=== PATIENT | male | born 1955 | race Caucasian/White ===

== ENCOUNTER 2018-06-08 09:33 | Inpatient (IN) | payer OTHER ==
--- NOTE | 2018-06-08 10:34 | PDOC ---
Attending Attestation - Resident Resident Name: Graham Logan - ED Attending Attestation I have performed the following: I have examined & evaluated the patient, The case was reviewed & discussed with the resident, I agree w/resident's findings & plan, Exceptions are as noted - HPI HPI: 06/08/18 10:49 63y M hx of AVM sp coil, bph, sent from urology for evaluation of possible UTI. Pt notes that he has been having fever/chills, dysuria/hematuria for several days, had a cystocscopy for workup of hematuria on , went to urology for fevers yetserday and was started with abx (?levaquin), was told that if still febrile will need to be admitted. he noted fever/chills last night so pt was referred to the ED for evalution. pt denies any cough, sob, abd pain, cp, new back pain. soc: smoking On exam pt in no distress vitals noted for fever/tachycardia mild b/l lumbar tenderness abd soft nontender cardiac exam noted for tachycadrdia pulm exam c/ta b/l, no wheezing suspect UTI due to systemic complaints anticipate admission for further mangament - Physicial Exam PE: 06/08/18 12:18 see above - Medical Decision Making 06/08/18 12:17 labs noted for leukocytosis ua suggestive of UTI will admit for further management of urosepsis Heart Score/ECG Review - ECG Impressions Comment:: 06/08/18 11:42 Twelve-lead EKG was performed and reviewed by me. There is normal sinus rhythm with a normal rate. Rate of 88 The axis is normal. The intervals are normal. There is normal R wave progression There are no ST or T wave abnormalities. Impression: Normal twelve-lead EKG
[2018-06-08 10:38] LABS: BASO % 0.5 % (0-2.0); EOS % 0.1 % (0-4.5); HEMATOCRIT 41.6 % (35.4-49); HEMOGLOBIN 14.1 GM/dL (11.7-16.9); MEAN CELL VOLUME 85.3 fl (80-96); MEAN PLT VOLUME 9.3 fl (7.5-11.1); MONO % 8.4 % (3.8-10.2); PLATELET COUNT 202 K/MM3 (134-434); RBC 4.88 M/mm3 (4.00-5.60); RDW 14.8 % (11.9-15.9); WHITE BLOOD COUNT 17.8 K/mm3 (4.0-10.0)
[2018-06-08] MEDS ORDERED: ACETAMINOPHEN INJECTION 100 ML IVPB ONE (10:38)
[2018-06-08] MEDS ORDERED: ACETAMINOPHEN 1000 MG/100 ML VIAL (NON FORMULARY) IVPB ONE (10:38)
--- NOTE | 2018-06-08 10:38 | PDOC ---
History of Present Illness - General Chief Complaint: SIRS, Suspected/Possible Stated Complaint: FEVER Time Seen by Provider: 06/08/18 09:50 - History of Present Illness Initial Comments: 06/08/18 10:29 Pt is a 63 y/o gentleman with a past medical history of BPH and AVM presents to [facility] from his Urologist's office with c/o fever and chills for the past 2 weeks. Pt underwent a cystoscopy with Dr Nails this past Monday. Additionally, pt endorses that he started experiencing dysuria, lower back pain , and intermittent hematuria approximately 2 months ago while on vacation in [place]. Denies Chest pain, shortness of breath, headache, vomiting, or changes in vision. Endorses lightheadedness, fever, and chills. NKDA Social Hx- Smokes 1 pack cigarettes per day, Social drinker PSurgHx- AVM coiling FH- Noncontributory Past History - Past Medical History Allergies/Adverse Reactions: Allergies Allergy/AdvReac Type Severity Reaction Status Date / Time No Known Allergies Allergy Verified 06/08/18 09:41 Home Medications: Ambulatory Orders Atorvastatin Ca [Lipitor] 40 mg PO HS 06/08/18 COPD: No HTN: Yes Hypercholesterolemia: Yes - Surgical History Cardiac Surgery: (avm) - Suicide/Smoking/Psychosocial Hx Smoking History: Never smoked Number of Cigarettes Smoked Daily: 20 Information on smoking cessation initiated: No Hx Alcohol Use: No Drug/Substance Use Hx: No Review of Systems - Review of Systems Able to Perform ROS?: Yes Is the patient limited Yemeni proficient: Yes HEENTM: No: Symptoms Reported, See HPI, Eye Pain, Blurred Vision, Tearing, Recent change in vision, Double Vision, Cataracts, Ear Pain, Ocular Prothesis, Ear Discharge, Nose Pain, Nose Congestion, Tinnitus, Nose Bleeding, Hearing Loss , Throat Pain, Throat Swelling, Mouth Pain, Dental Problems, Difficulty Swallowing, Mouth Swelling, Other Respiratory: No: Symptoms reported, See HPI, Cough, Orthopnea, Shortness of Breath, SOB with Exertion, SOB at Rest, Stridor, Wheezing, Productive cough, Hemoptysis, Other Cardiac (ROS): Yes: Lightheadedness : Yes: Burning, Dysuria, Frequency, Flank Pain, Hematuria, Pain Integumentary: No: Symptoms Reported, See HPI, Bruising, Change in Color, Change in Hair/Nails, Dryness, Erythema, Flushing, Lesions, Lumps, Pallor, Pruritus, Rash, Sweating, Other Neurological: No: Symptoms reported, See HPI, Headache, Numbness, Paresthesia, Pre-Existing Deficit, Seizure, Tingling, Tremors, Weakness, Unsteady Gait, Ataxia, Dizziness, Other Psychiatric: No: Anxiety, Depression, Frequent Crying, Stressors, Sleep Pattern Change, Emotional Problems, Mood Swings, Change in Appetite, Other Endocrine: No: Symptoms Reported, See HPI, Excessive Sweating, Flushing, Intolerance to Cold, Intolerance to Heat, Increased Hunger, Increased Thirst, Increased Urine, Unexplained Weight Gain, Unexplained Weight Loss, Change in Weight, Other Hematologic/Lymphatic: No: Symptoms Reported, See HPI, Anemia, Blood Clots, Easy Bleeding, Easy Bruising, Bleeding Diathesis, Lymph Node Abnormalities, Swollen Glands, Other *Physical Exam - Vital Signs Last Vital Signs Temp Pulse Resp BP Pulse Ox 98.9 F 104 H 22 H 122/80 96 06/08/18 09:39 06/08/18 09:39 06/08/18 09:39 06/08/18 09:39 06/08/18 09:39 - Physical Exam General Appearance: Yes: Nourished, Appropriately Dressed, Apparent Distress HEENT: positive: EOMI, SHIRLENE, Normal ENT Inspection, Normal Voice, Symmetrical Neck: positive: Trachea midline Respiratory/Chest: positive: Lungs Clear, Normal Breath Sounds Cardiovascular: positive: Regular Rate, S1, S2, Tachycardia Gastrointestinal/Abdominal: negative: Normal Bowel Sounds, Tender, Flat, Soft, Organomegaly, Pulsatile Mass, Increased Bowel Sounds, Decreased BS, Protuberent , Distended, Guarding, Rebound, Tenderness, Hernia, Mass, Hepatomegaly, Spleenomegaly, Other Male Genitalia: positive: normal genitalia (Testes normal in size and consistency, no urethral d/c. ) Neurologic: positive: disability advocate II-XII NML intact, Fully Oriented ED Treatment Course - LABORATORY CBC & Chemistry Diagram: 06/08/18 10:28 06/08/18 10:28 Medical Decision Making - Medical Decision Making 06/08/18 11:00 Full Sepsis Workup done WBC 17.4, Temp 101.1, RR 22, HR 104, all 4 SIRS criteria met. Source of sepsis G.U? 06/08/18 11:07 Ofiramev, LR's 06/08/18 11:08 Lactic Acid, Urinalysis pending. 06/08/18 11:11 Urine Protein 2+, Leuk Es 1+, Blood 2+ 06/08/18 12:43 1 gm Rocephin given, I.D on board 06/08/18 12:44 Pt to be admitted for urosepsis work-up. *DC/Admit/Observation/Transfer Diagnosis at time of Disposition: Sepsis - Referrals - Patient Instructions - Post Discharge Activity
[2018-06-08] MEDS: LACTATED RINGERS SOLUTION 1,000 ML/1,000 ML INFUS.BAG IV SCH ×2 (10:47→16:30)
[2018-06-08 10:54] LABS: URINE APPEARANCE CLEAR; URINE BILIRUBIN NEGATIVE (<2.0 mg/dL); URINE COLOR YELLOW; URINE GLUCOSE (UA) NEGATIVE (NEGATIVE); URINE KETONE TRACE (NEGATIVE); URINE NITRITE NEGATIVE (NEGATIVE)
[2018-06-08] MEDS ORDERED: BACITRACIN 0.9 GM PACKET ONE (10:55)
[2018-06-08 11:02] LABS: URINE LEUK ESTERASE 1+ (NEGATIVE); URINE PROTEIN 2+ (NEGATIVE)
[2018-06-08 11:03] LABS: URINE MUCUS FEW
[2018-06-08 11:16] LABS: ALBUMIN 3.5 g/dl (3.4-5.0); ALK PHOS 46 U/L (45-117); ANION GAP 10 MMOL/L (8-16); BILIRUBIN,TOTAL 0.8 mg/dL (0.2-1); BLOOD UREA NITROGEN 21 mg/dL (7-18); CALCIUM 9.7 mg/dL (8.5-10.1); CHLORIDE 103 mmol/L (98-107); CO2 24 mmol/L (21-32); CREATININE 1.2 mg/dL (0.55-1.3); GLUCOSE,RANDOM 96 mg/dL (74-106); POTASSIUM 4.2 mmol/L (3.5-5.1); SGPT/ALT 28 U/L (13-61); SODIUM 137 mmol/L (136-145); TOT PROT 7.2 g/dl (6.4-8.2)
[2018-06-08 11:17] LABS: SGOT/AST 24 U/L (15-37)
[2018-06-08 11:21] LABS: INR 1.5 (0.83-1.09); PROTHROMBIN TIME (PATIENT) 16.9 SEC (9.7-13.0)
[2018-06-08] MEDS ORDERED: CEFTRIAXONE 1,000 MG in DEXTROSE 5%-WATER - 50 ML IVPB ONE (11:41)
[2018-06-08] MEDS ORDERED: CEFTRIAXONE 1 GM/50 ML BAG ONE (11:54)
[2018-06-08] MEDS ORDERED: ONDANSETRON *ODT* 4 MG TABLET SL PRN (11:55)
[2018-06-08] MEDS ORDERED: ACETAMINOPHEN 325 MG TABLET (FP) PO PRN (11:55)
--- NOTE | 2018-06-08 12:01 | HP ---
Admitting History and Physical - Primary Care Physician PCP: Madeleine Das - Admission Chief Complaint: URINARY SEPSIS History of Present Illness: PATIENT 63 Y/O MALE HISTORY OF LIPIDEMIA, AVM REPAIR, HERE WITH URINE SEPSIS FROM A PROSTATE CYSTOSCOPY DONE THIS PAST WEEK DEVELOPING UTI. CHECKING CULTURES HOWEVER PATIENT WAS GIVEN IV CEFTRIAXONE AND LEVAQUIN PO AT HIS UROLOGISTS OFFICE. History Source: Patient - Past Surgical History Additional Past Surgical History: AVM REPAIR - Smoking History Smoking history: Never smoked Aproximately how many cigarettes per day: 20 - Alcohol/Substance Use Hx Alcohol Use: No Home Medications - Allergies Allergies/Adverse Reactions: Allergies Allergy/AdvReac Type Severity Reaction Status Date / Time No Known Allergies Allergy Verified 06/08/18 09:41 - Home Medications Home Medications: Ambulatory Orders Atorvastatin Ca [Lipitor] 40 mg PO HS 06/08/18 Review of Systems - Review of Systems Constitutional: reports: Loss of Appetite, Weakness Eyes: reports: No Symptoms HENT: reports: No Symptoms Neck: reports: No Symptoms Respiratory: reports: No Symptoms Gastrointestinal: reports: No Symptoms Genitourinary: reports: Flank Pain, Frequency, Urgency, Other Musculoskeletal: reports: No Symptoms Integumentary: reports: No Symptoms Neurological: reports: No Symptoms Endocrine: reports: No Symptoms Hematology/Lymphatic: reports: No Symptoms Psychiatric: reports: No Symptoms Physical Examination Vital Signs: Vital Signs Temperature 101.1 F H 06/08/18 10:50 Pulse Rate 104 H 06/08/18 09:39 Respiratory Rate 22 H 06/08/18 09:39 Blood Pressure 122/80 06/08/18 09:39 O2 Sat by Pulse Oximetry (%) 96 06/08/18 09:39 Constitutional: Yes: Mild Distress Eyes: Yes: WNL HENT: Yes: WNL Neck: Yes: WNL Cardiovascular: Yes: WNL Respiratory: Yes: WNL Gastrointestinal: Yes: WNL Renal/: Yes: WNL Musculoskeletal: Yes: WNL Extremities: Yes: WNL Edema: No Peripheral Pulses WNL: Yes Integumentary: Yes: WNL Wound/Incision: Yes: Clean/Dry Neurological: Yes: WNL ...Motor Strength: WNL Psychiatric: Yes: WNL Labs: CBC, BMP 06/08/18 10:28 06/08/18 10:28 Problem List - Problems (1) Acute cystitis with hematuria Code(s): N30.01 - ACUTE CYSTITIS WITH HEMATURIA (2) BPH w urinary obs/LUTS Code(s): N40.1 - BENIGN PROSTATIC HYPERPLASIA WITH LOWER URINARY TRACT SYMP; N13.8 - OTHER OBSTRUCTIVE AND REFLUX UROPATHY Assessment/Plan IV ABX CHECK CULTURES ID CONSULT UROLOGY EVAL
[2018-06-08] MEDS: CEFTRIAXONE 1 GM in DEXTROSE 5%-WATER - 50 ML IVPB SCH (14:18)
[2018-06-09 09:41] LABS: HEMATOCRIT 37.1 % (35.4-49); HEMOGLOBIN 12.5 GM/dL (11.7-16.9); MCH 28.8 pg (25.7-33.7); MCHC 33.6 g/dl (32.0-35.9); MEAN CELL VOLUME 85.6 fl (80-96); MEAN PLT VOLUME 9.3 fl (7.5-11.1); PLATELET COUNT 189 K/MM3 (134-434); RBC 4.33 M/mm3 (4.00-5.60); RDW 15.3 % (11.9-15.9); WHITE BLOOD COUNT 10.1 K/mm3 (4.0-10.0)
[2018-06-09] MEDS: CEFTRIAXONE 1 GM in DEXTROSE 5%-WATER - 50 ML IVPB SCH (10:00)
--- NOTE | 2018-06-09 10:09 | CON.ID ---
Consult Consult Specialty:: infectious diseases Referred by:: Reason for Consultation:: ut,fever,leukocytosis - History of Present Illness Chief Complaint: fever,burning in urine History of Present Illness: 63y M hx of AVM sp coil, bph, coming to the hospital for sepsis picture icluding fever and leukocytosis.Patient still c/o of burning in urine but says he is better and that the fevers have improved since admission. all cx have been send and they are pending Pt notes that he has been having fever/chills, dysuria/hematuria for several days, had a cystocscopy for workup of hematuria on , went to urology for fevers yetserday and was started with abx According to the patient he received one im injection and was given it seems levaquin did not help him much and came to the hospital - History Source History Provided By: Patient Limitations to Obtaining History: No Limitations - Alcohol/Substance Use Hx Alcohol Use: No - Smoking History Smoking history: Never smoked Have you smoked in the past 12 months: No Aproximately how many cigarettes per day: 20 Home Medications - Allergies Allergies/Adverse Reactions: Allergies Allergy/AdvReac Type Severity Reaction Status Date / Time No Known Allergies Allergy Verified 06/08/18 09:41 - Home Medications Home Medications: Ambulatory Orders Atorvastatin Ca [Lipitor] 40 mg PO HS 06/08/18 Review of Systems - Review of Systems Constitutional: reports: Fever Eyes: reports: No Symptoms HENT: reports: No Symptoms Neck: reports: No Symptoms Cardiovascular: reports: No Symptoms Respiratory: reports: No Symptoms Gastrointestinal: reports: No Symptoms Genitourinary: reports: Burning Musculoskeletal: reports: No Symptoms Integumentary: reports: No Symptoms Neurological: reports: No Symptoms Endocrine: reports: No Symptoms Hematology/Lymphatic: reports: No Symptoms Psychiatric: reports: No Symptoms Physical Exam Vital Signs: Vital Signs Temperature 98.1 F 06/09/18 06:00 Pulse Rate 85 06/09/18 06:00 Respiratory Rate 06/09/18 06:00 Blood Pressure 128/90 06/09/18 06:00 O2 Sat by Pulse Oximetry (%) 98 06/08/18 21:00 Constitutional: Yes: Well Nourished, Calm, Mild Distress Eyes: Yes: Conjunctiva Clear Cardiovascular: Yes: Regular Rate and Rhythm Respiratory: Yes: Regular, CTA Bilaterally Gastrointestinal: Yes: Normal Bowel Sounds, Soft Renal/: Yes: Other Musculoskeletal: Yes: WNL Extremities: Yes: WNL Neurological: Yes: Alert, Oriented Psychiatric: Yes: Alert, Oriented Labs: CBC, BMP 06/09/18 06:00 Imaging - Results Chest X-ray: Report Reviewed, Image Reviewed Assessment/Plan Problem List - Problems (1) Acute cystitis with hematuria Code(s): N30.01 - ACUTE CYSTITIS WITH HEMATURIA (2) BPH w urinary obs/LUTS Code(s): N40.1 - BENIGN PROSTATIC HYPERPLASIA WITH LOWER URINARY TRACT SYMP; N13.8 - OTHER OBSTRUCTIVE AND REFLUX UROPATHY 3 fever 4 leukocytosis plan continue ceftriaxone for now await for cx reports monitor fevers rest as per the team
[2018-06-09] MEDS: PANTOPRAZOLE 40 MG TABLET (FP) PO SCH (10:28)
[2018-06-09 10:29] LABS: ALBUMIN 2.9 g/dl (3.4-5.0); ALK PHOS 37 U/L (45-117); ANION GAP 10 MMOL/L (8-16); BILIRUBIN,TOTAL 0.4 mg/dL (0.2-1); BLOOD UREA NITROGEN 13 mg/dL (7-18); CALCIUM 8.5 mg/dL (8.5-10.1); CHLORIDE 107 mmol/L (98-107); CO2 25 mmol/L (21-32); CREATININE 0.9 mg/dL (0.55-1.3); GLUCOSE,RANDOM 87 mg/dL (74-106); POTASSIUM 4.2 mmol/L (3.5-5.1); SGOT/AST 17 U/L (15-37); SGPT/ALT 25 U/L (13-61); SODIUM 141 mmol/L (136-145)
[2018-06-09] MEDS ORDERED: cefTRIAXone SODIUM 1 GM VIAL ONE (10:45)
[2018-06-09] MEDS ORDERED: DEXTROSE 5%-WATER - 50 ML IVPB ONE (10:46)
[2018-06-09] MEDS ORDERED: ACETAMINOPHEN 325 MG TABLET (FP) PO PRN (13:48)
[2018-06-09] MEDS ORDERED: TAMSULOSIN HCL 0.4 MG CAP.ER.24H (FP) PO ONE (14:00)
--- NOTE | 2018-06-09 14:09 | CONS ---
DATE OF CONSULTATION: DATE OF DICTATION: 06/09/2018 The patient is a 63-year-old male admitted via the emergency room on June 08, 2018, with fever, chills, shakes and dysuria. He does have history of prostatism and has been having recurrent bouts of urinary tract infection. He also states that he has been having intermittent gross painful hematuria. The patient does have past history of dyslipidemia as well as hypertension. He has had an AVM in the brain which was coiled in the past. The patient states that 1 week prior he underwent a cystoscopy at his private urologist's office and afterwards developed dysuria, frequency, fever, low-back pain, chills and diaphoresis. He also has been having intermittent hematuria as well as stranguria. He denies any chest pain or shortness of breath. He denies any nausea or vomiting. The patient is a social drinker and does smoke 1 pack of cigarettes per day. He denies any other surgical procedures except for the AVM coiling. He denies any allergies. Presently, the patient is on Lipitor for his and possibly Norvasc. Physical exam revealed a well-developed adult male in no apparent distress. His abdomen is soft. There is some left CVA tenderness. There are no scars. No hepatosplenomegaly is noted. Bowel sounds are normoactive. Genitalia revealed mild bilateral orchalgia. He is circumcised. Meatus is adequate. His prostate was deferred due to the acute process. His pulses were all normal. Extremities revealed full range of motion with no cyanosis, clubbing, or edema. In the emergency room, his white count was 17.8. Today it is 10.1. Hemoglobin and hematocrit are 14/41. BUN and creatinine are 21/1.2. Random glucose was 96. The patient was admitted for a sepsis workup because of the leukocytosis, the temperature and the tachycardia. He has a long history of prostatism including frequency, urgency, hesitancy, terminal dribbling, and feelings of incomplete bladder emptying. The patient had an outpatient CAT scan of his abdomen and pelvis. The results are not available as of today. A chest x-ray in the emergency room revealed no evidence of pneumonia, congestive heart failure or pleural effusion. His latest lab data again reveals a white count of 10,000. His urine is positive for blood but negative for nitrates. IMPRESSION: At present this is a 63-year-old male with benign prostatic hypertrophy and lower urinary tract symptoms. He has developed an acute bout of prostatitis with urosepsis. PLAN: Will treat with appropriate IV antibiotics. We will keep the patient on Flomax 0.4 mg daily. The patient will need a workup including a cystoscopy, a cystometrogram and a possible TUR vaporization of the prostate. This will be done as an outpatient when the patient is medically stable and is no longer infected. Will follow with you. Isamar [id number]
--- NOTE | 2018-06-09 14:47 | PN ---
Progress Note, Physician Chief Complaint: UTI History of Present Illness: s/p cystoscopy UC negative BC pending On IV abx leukocytosis improved afebrile Seen by ID and Urology - Current Medication List Current Medications: Active Medications Acetaminophen (Tylenol -) 650 mg PO Q6H PRN PRN Reason: PAIN OR FEVER Acetaminophen (Tylenol -) 650 mg PO Q6H PRN PRN Reason: PAIN Lactated Ringer's (Lactated Ringers Solution) 1,000 ml in 1,000 mls @ 100 mls/ hr IV ASDIR [facility] Last Admin: 06/08/18 16:30 Dose: 100 mls/hr Ceftriaxone Sodium 1 gm/ (Dextrose) 50 mls @ 100 mls/hr IVPB DAILY [facility]; Protocol Last Admin: 06/09/18 10:00 Dose: 100 mls/hr Ondansetron HCl (Zofran Odt -) 4 mg SL Q6H PRN PRN Reason: NAUSEA AND/OR VOMITING Pantoprazole Sodium (Protonix -) 40 mg PO DAILY [facility] Last Admin: 06/09/18 10:28 Dose: 40 mg - Objective Vital Signs: Vital Signs Temperature 98.3 F 06/09/18 10:20 Pulse Rate 75 06/09/18 10:20 Respiratory Rate 20 06/09/18 10:20 Blood Pressure 115/69 06/09/18 10:20 O2 Sat by Pulse Oximetry (%) 98 06/08/18 21:00 Constitutional: Yes: Well Nourished, No Distress, Calm Cardiovascular: Yes: Regular Rate and Rhythm Respiratory: Yes: Regular Gastrointestinal: Yes: Normal Bowel Sounds, Soft Musculoskeletal: Yes: WNL Extremities: Yes: WNL Edema: No Peripheral Pulses WNL: Yes Neurological: Yes: Alert, Oriented Psychiatric: Yes: Alert, Oriented Labs: CBC, BMP 06/09/18 06:00 06/09/18 06:00 INR, PTT INR 1.50 (0.83-1.09) H 06/08/18 11:03 Problem List - Problems (1) Acute cystitis with hematuria Assessment/Plan: -UC negative -Await BC -ID on board -IV abx -afebrile -repeat labs in AM -Urology on board Code(s): N30.01 - ACUTE CYSTITIS WITH HEMATURIA Assessment/Plan see problem list
--- NOTE | 2018-06-09 15:39 | EKG ---
Test Reason : Blood Pressure : / mmHG Vent. Rate : 088 BPM Atrial Rate : 088 BPM P-R Int : 186 ms QRS Dur : 084 ms QT Int : 344 ms P-R-T Axes : 035 016 038 degrees QTc Int : 416 ms NORMAL SINUS RHYTHM NORMAL ECG NO PREVIOUS ECGS AVAILABLE Confirmed by MD Leal Daniel ([id number]) on 06/09/2018 3:39:16 PM Referred By: Confirmed By:Federico Leal MD
[2018-06-09] MEDS: LACTATED RINGERS SOLUTION 1,000 ML/1,000 ML INFUS.BAG IV SCH (15:40)
[2018-06-10 07:53] LABS: ANION GAP 5 MMOL/L (8-16); BLOOD UREA NITROGEN 16 mg/dL (7-18); CALCIUM 8.7 mg/dL (8.5-10.1); CHLORIDE 107 mmol/L (98-107); CO2 28 mmol/L (21-32); GLUCOSE,RANDOM 95 mg/dL (74-106); POTASSIUM 4.1 mmol/L (3.5-5.1); SODIUM 140 mmol/L (136-145)
[2018-06-10] MEDS ORDERED: DEXTROSE 5%-WATER - 50 ML IVPB ONE (09:51)
[2018-06-10] MEDS ORDERED: cefTRIAXone SODIUM 1 GM VIAL ONE (09:51)
[2018-06-10] MEDS: CEFTRIAXONE 1 GM in DEXTROSE 5%-WATER - 50 ML IVPB SCH (09:54)
[2018-06-10] MEDS: PANTOPRAZOLE 40 MG TABLET (FP) PO SCH (09:54)
[2018-06-10 10:59] LABS: BASO % 0.9 % (0-2.0); EOS % 1.8 % (0-4.5); HEMATOCRIT 36.2 % (35.4-49); HEMOGLOBIN 12.3 GM/dL (11.7-16.9); LYMPH % 25.1 % (8-40); MCHC 33.9 g/dl (32.0-35.9); MEAN CELL VOLUME 85.7 fl (80-96); MONO % 9.4 % (3.8-10.2); NEUT % 62.8 % (42.8-82.8); RBC 4.23 M/mm3 (4.00-5.60); WHITE BLOOD COUNT 7.6 K/mm3 (4.0-10.0)
--- NOTE | 2018-06-10 11:33 | PN ---
Progress Note, Physician History of Present Illness: stable doing well afebrile - Current Medication List Current Medications: Active Medications Acetaminophen (Tylenol -) 650 mg PO Q6H PRN PRN Reason: PAIN OR FEVER Acetaminophen (Tylenol -) 650 mg PO Q6H PRN PRN Reason: PAIN Lactated Ringer's (Lactated Ringers Solution) 1,000 ml in 1,000 mls @ 100 mls/ hr IV ASDIR [facility] Last Admin: 06/09/18 15:40 Dose: 100 mls/hr Ceftriaxone Sodium 1 gm/ (Dextrose) 50 mls @ 100 mls/hr IVPB DAILY [facility]; Protocol Last Admin: 06/10/18 09:54 Dose: 100 mls/hr Ondansetron HCl (Zofran Odt -) 4 mg SL Q6H PRN PRN Reason: NAUSEA AND/OR VOMITING Pantoprazole Sodium (Protonix -) 40 mg PO DAILY [facility] Last Admin: 06/10/18 09:54 Dose: 40 mg - Objective Vital Signs: Vital Signs Temperature 98.1 F 06/10/18 09:49 Pulse Rate 80 06/10/18 09:49 Respiratory Rate 20 06/10/18 09:49 Blood Pressure 124/72 06/10/18 09:49 O2 Sat by Pulse Oximetry (%) 97 06/09/18 19:13 Constitutional: Yes: No Distress, Calm Cardiovascular: Yes: Regular Rate and Rhythm Respiratory: Yes: Regular, CTA Bilaterally Gastrointestinal: Yes: Normal Bowel Sounds, Soft Musculoskeletal: Yes: WNL Extremities: Yes: WNL Neurological: Yes: Alert, Oriented Psychiatric: Yes: Alert, Oriented Labs: CBC, BMP 06/10/18 05:45 06/10/18 05:45 INR, PTT INR 1.50 (0.83-1.09) H 06/08/18 11:03 Assessment/Plan Problem List - Problems (1) Acute cystitis with hematuria Code(s): N30.01 - ACUTE CYSTITIS WITH HEMATURIA (2) BPH w urinary obs/LUTS Code(s): N40.1 - BENIGN PROSTATIC HYPERPLASIA WITH LOWER URINARY TRACT SYMP; N13.8 - OTHER OBSTRUCTIVE AND REFLUX UROPATHY 3 fever 4 leukocytosis plan continue ceftriaxone await for cx reports monitor fevers rest as per the team
[2018-06-10] MEDS: LACTATED RINGERS SOLUTION 1,000 ML/1,000 ML INFUS.BAG IV SCH (11:37)
--- NOTE | 2018-06-10 11:48 | PN ---
Progress Note, Physician Chief Complaint: UTI History of Present Illness: s/p cystoscopy UC negative BC pending On IV abx leukocytosis improved afebrile Seen by ID and Urology - Current Medication List Current Medications: Active Medications Acetaminophen (Tylenol -) 650 mg PO Q6H PRN PRN Reason: PAIN OR FEVER Acetaminophen (Tylenol -) 650 mg PO Q6H PRN PRN Reason: PAIN Lactated Ringer's (Lactated Ringers Solution) 1,000 ml in 1,000 mls @ 100 mls/ hr IV ASDIR [facility] Last Admin: 06/10/18 11:37 Dose: 100 mls/hr Ceftriaxone Sodium 1 gm/ (Dextrose) 50 mls @ 100 mls/hr IVPB DAILY [facility]; Protocol Last Admin: 06/10/18 09:54 Dose: 100 mls/hr Ondansetron HCl (Zofran Odt -) 4 mg SL Q6H PRN PRN Reason: NAUSEA AND/OR VOMITING Pantoprazole Sodium (Protonix -) 40 mg PO DAILY [facility] Last Admin: 06/10/18 09:54 Dose: 40 mg - Objective Vital Signs: Vital Signs Temperature 98.1 F 06/10/18 09:49 Pulse Rate 80 06/10/18 09:49 Respiratory Rate 20 06/10/18 09:49 Blood Pressure 124/72 06/10/18 09:49 O2 Sat by Pulse Oximetry (%) 97 06/09/18 19:13 Constitutional: Yes: Well Nourished, No Distress, Calm Cardiovascular: Yes: Regular Rate and Rhythm Respiratory: Yes: Regular Gastrointestinal: Yes: Normal Bowel Sounds, Soft Musculoskeletal: Yes: WNL Extremities: Yes: WNL Edema: No Peripheral Pulses WNL: Yes Neurological: Yes: Alert, Oriented Psychiatric: Yes: Alert, Oriented Labs: CBC, BMP 06/10/18 05:45 06/10/18 05:45 INR, PTT INR 1.50 (0.83-1.09) H 06/08/18 11:03 Problem List - Problems (1) Acute cystitis with hematuria Assessment/Plan: -UC negative -Await BC -ID on board -IV abx -afebrile -Urology on board Code(s): N30.01 - ACUTE CYSTITIS WITH HEMATURIA (2) Leukocytosis Assessment/Plan: -resolved Code(s): D72.829 - ELEVATED WHITE BLOOD CELL COUNT, UNSPECIFIED Assessment/Plan see problem list
[2018-06-10 12:18] LABS: MEAN PLT VOLUME 8.9 fl (7.5-11.1); PLATELET COUNT 188 K/MM3 (134-434)
[2018-06-10 12:19] LABS: SMUDGE CELLS FEW
[2018-06-10 12:20] LABS: PLATELET ESTIMATE ADEQUATE
[2018-06-11] MEDS: LACTATED RINGERS SOLUTION 1,000 ML/1,000 ML INFUS.BAG IV SCH ×2 (02:13→15:05)
[2018-06-11] MEDS ORDERED: DEXTROSE 5%-WATER - 50 ML IVPB ONE (10:35)
[2018-06-11] MEDS ORDERED: cefTRIAXone SODIUM 1 GM VIAL ONE (10:35)
[2018-06-11] MEDS: CEFTRIAXONE 1 GM in DEXTROSE 5%-WATER - 50 ML IVPB SCH (10:44)
[2018-06-11] MEDS: PANTOPRAZOLE 40 MG TABLET (FP) PO SCH (10:45)
--- NOTE | 2018-06-11 12:11 | PN ---
Progress Note, Physician History of Present Illness: patient stable doing well no issues - Current Medication List Current Medications: Active Medications Acetaminophen (Tylenol -) 650 mg PO Q6H PRN PRN Reason: PAIN OR FEVER Acetaminophen (Tylenol -) 650 mg PO Q6H PRN PRN Reason: PAIN Lactated Ringer's (Lactated Ringers Solution) 1,000 ml in 1,000 mls @ 100 mls/ hr IV ASDIR [facility] Last Admin: 06/11/18 02:13 Dose: 100 mls/hr Ceftriaxone Sodium 1 gm/ (Dextrose) 50 mls @ 100 mls/hr IVPB DAILY [facility]; Protocol Last Admin: 06/11/18 10:44 Dose: 100 mls/hr Ondansetron HCl (Zofran Odt -) 4 mg SL Q6H PRN PRN Reason: NAUSEA AND/OR VOMITING Pantoprazole Sodium (Protonix -) 40 mg PO DAILY [facility] Last Admin: 06/11/18 10:45 Dose: 40 mg - Objective Vital Signs: Vital Signs Temperature 98.3 F 06/11/18 06:00 Pulse Rate 69 06/11/18 06:00 Respiratory Rate 17 06/11/18 06:00 Blood Pressure 133/82 06/11/18 06:00 O2 Sat by Pulse Oximetry (%) 97 06/10/18 21:00 Constitutional: Yes: No Distress, Calm Cardiovascular: Yes: Regular Rate and Rhythm Respiratory: Yes: Regular, CTA Bilaterally Gastrointestinal: Yes: Normal Bowel Sounds, Soft Musculoskeletal: Yes: WNL Extremities: Yes: WNL Neurological: Yes: Alert, Oriented Psychiatric: Yes: Alert, Oriented Labs: CBC, BMP 06/10/18 05:45 06/10/18 05:45 INR, PTT INR 1.50 (0.83-1.09) H 06/08/18 11:03 Assessment/Plan Problem List - Problems (1) Acute cystitis with hematuria Code(s): N30.01 - ACUTE CYSTITIS WITH HEMATURIA (2) BPH w urinary obs/LUTS Code(s): N40.1 - BENIGN PROSTATIC HYPERPLASIA WITH LOWER URINARY TRACT SYMP; N13.8 - OTHER OBSTRUCTIVE AND REFLUX UROPATHY 3 fever 4 leukocytosis patient still c/o of burning in urine much better though plan might deescalate to oral abx tomorrow down the road will need definitive procedure rest continue current mgmt patient stable
--- NOTE | 2018-06-11 13:11 | PN ---
Progress Note, Physician Chief Complaint: patient seen and examined on iv rocephin ambulating hallways - Current Medication List Current Medications: Active Medications Acetaminophen (Tylenol -) 650 mg PO Q6H PRN PRN Reason: PAIN OR FEVER Acetaminophen (Tylenol -) 650 mg PO Q6H PRN PRN Reason: PAIN Lactated Ringer's (Lactated Ringers Solution) 1,000 ml in 1,000 mls @ 100 mls/ hr IV ASDIR [facility] Last Admin: 06/11/18 02:13 Dose: 100 mls/hr Ceftriaxone Sodium 1 gm/ (Dextrose) 50 mls @ 100 mls/hr IVPB DAILY [facility]; Protocol Last Admin: 06/11/18 10:44 Dose: 100 mls/hr Ondansetron HCl (Zofran Odt -) 4 mg SL Q6H PRN PRN Reason: NAUSEA AND/OR VOMITING Pantoprazole Sodium (Protonix -) 40 mg PO DAILY [facility] Last Admin: 06/11/18 10:45 Dose: 40 mg - Objective Vital Signs: Vital Signs Temperature 98.3 F 06/11/18 06:00 Pulse Rate 69 06/11/18 06:00 Respiratory Rate 17 06/11/18 06:00 Blood Pressure 133/82 06/11/18 06:00 O2 Sat by Pulse Oximetry (%) 97 06/10/18 21:00 Constitutional: Yes: Calm Cardiovascular: Yes: Regular Rate and Rhythm, S1, S2 Respiratory: Yes: CTA Bilaterally Gastrointestinal: Yes: Normal Bowel Sounds, Soft Edema: No Neurological: Yes: Alert, Oriented Labs: CBC, BMP 06/10/18 05:45 06/10/18 05:45 INR, PTT INR 1.50 (0.83-1.09) H 06/08/18 11:03 Problem List - Problems (1) Acute cystitis with hematuria Assessment/Plan: iv rocephin ID follow up noted change to po abx tmw and DC home in AM Code(s): N30.01 - ACUTE CYSTITIS WITH HEMATURIA
[2018-06-12] MEDS ORDERED: cefTRIAXone SODIUM 1 GM VIAL ONE (09:19)
[2018-06-12] MEDS ORDERED: DEXTROSE 5%-WATER - 50 ML IVPB ONE (09:19)
[2018-06-12] MEDS: PANTOPRAZOLE 40 MG TABLET (FP) PO SCH (09:30)
[2018-06-12] MEDS: CEFTRIAXONE 1 GM in DEXTROSE 5%-WATER - 50 ML IVPB SCH (09:35)
--- NOTE | 2018-06-12 09:44 | PN ---
Progress Note, Physician History of Present Illness: -Feels better - Current Medication List Current Medications: Active Medications Acetaminophen (Tylenol -) 650 mg PO Q6H PRN PRN Reason: PAIN OR FEVER Acetaminophen (Tylenol -) 650 mg PO Q6H PRN PRN Reason: PAIN Lactated Ringer's (Lactated Ringers Solution) 1,000 ml in 1,000 mls @ 100 mls/ hr IV ASDIR [facility] Last Admin: 06/11/18 15:05 Dose: 100 mls/hr Ceftriaxone Sodium 1 gm/ (Dextrose) 50 mls @ 100 mls/hr IVPB DAILY [facility]; Protocol Last Admin: 06/11/18 10:44 Dose: 100 mls/hr Ondansetron HCl (Zofran Odt -) 4 mg SL Q6H PRN PRN Reason: NAUSEA AND/OR VOMITING Pantoprazole Sodium (Protonix -) 40 mg PO DAILY [facility] Last Admin: 06/12/18 09:30 Dose: 40 mg - Objective Vital Signs: Vital Signs Temperature 98.1 F 06/12/18 09:21 Pulse Rate 75 06/12/18 09:21 Respiratory Rate 20 06/12/18 09:21 Blood Pressure 125/80 06/12/18 09:21 O2 Sat by Pulse Oximetry (%) 97 06/11/18 21:00 Cardiovascular: Yes: Regular Rate and Rhythm Respiratory: Yes: Regular, CTA Bilaterally Gastrointestinal: Yes: Normal Bowel Sounds, Soft Genitourinary: No: CVA Tenderness - Left, CVA Tenderness - Right Edema: No Labs: CBC, BMP 06/10/18 05:45 06/10/18 05:45 INR, PTT INR 1.50 (0.83-1.09) H 06/08/18 11:03 Problem List - Problems (1) Acute cystitis with hematuria Assessment/Plan: -Abx Per ID -May change to oral if dc Code(s): N30.01 - ACUTE CYSTITIS WITH HEMATURIA (2) BPH w urinary obs/LUTS Assessment/Plan: -Urology Follow up -PT states scheduled for surgery today Code(s): N40.1 - BENIGN PROSTATIC HYPERPLASIA WITH LOWER URINARY TRACT SYMP; N13.8 - OTHER OBSTRUCTIVE AND REFLUX UROPATHY (3) Leukocytosis Code(s): D72.829 - ELEVATED WHITE BLOOD CELL COUNT, UNSPECIFIED
[2018-06-12] MEDS: LACTATED RINGERS SOLUTION 1,000 ML/1,000 ML INFUS.BAG IV SCH ×2 (12:14→15:39)
--- NOTE | 2018-06-12 14:53 | PN ---
Progress Note, Physician History of Present Illness: stable no complaints - Current Medication List Current Medications: Active Medications Acetaminophen (Tylenol -) 650 mg PO Q6H PRN PRN Reason: PAIN OR FEVER Acetaminophen (Tylenol -) 650 mg PO Q6H PRN PRN Reason: PAIN Lactated Ringer's (Lactated Ringers Solution) 1,000 ml in 1,000 mls @ 100 mls/ hr IV ASDIR [facility] Last Admin: 06/12/18 12:14 Dose: Not Given Ceftriaxone Sodium 1 gm/ (Dextrose) 50 mls @ 100 mls/hr IVPB DAILY [facility]; Protocol Last Admin: 06/12/18 09:35 Dose: 100 mls/hr Ondansetron HCl (Zofran Odt -) 4 mg SL Q6H PRN PRN Reason: NAUSEA AND/OR VOMITING Pantoprazole Sodium (Protonix -) 40 mg PO DAILY [facility] Last Admin: 06/12/18 09:30 Dose: 40 mg - Objective Vital Signs: Vital Signs Temperature 98.1 F 06/12/18 09:21 Pulse Rate 75 06/12/18 09:21 Respiratory Rate 20 06/12/18 09:21 Blood Pressure 125/80 06/12/18 09:21 O2 Sat by Pulse Oximetry (%) 97 06/11/18 21:00 Constitutional: Yes: No Distress, Calm Cardiovascular: Yes: Regular Rate and Rhythm Respiratory: Yes: Regular, CTA Bilaterally Gastrointestinal: Yes: Normal Bowel Sounds, Soft Musculoskeletal: Yes: WNL Extremities: Yes: WNL Neurological: Yes: Alert, Oriented Psychiatric: Yes: Alert, Oriented Labs: CBC, BMP 06/10/18 05:45 06/10/18 05:45 INR, PTT INR 1.50 (0.83-1.09) H 06/08/18 11:03 Assessment/Plan Problem List - Problems (1) Acute cystitis with hematuria Code(s): N30.01 - ACUTE CYSTITIS WITH HEMATURIA (2) BPH w urinary obs/LUTS Code(s): N40.1 - BENIGN PROSTATIC HYPERPLASIA WITH LOWER URINARY TRACT SYMP; N13.8 - OTHER OBSTRUCTIVE AND REFLUX UROPATHY 3 fever 4 leukocytosis patient still c/o of burning in urine much better though plan patient can be discharged tomorrow after receiving the abx should be discharged on cipro 500 mg bid for 10 more days follow up with urology rest as per the team
--- NOTE | 2018-06-13 08:35 | PN ---
Progress Note, Physician History of Present Illness: -Feels better - Current Medication List Current Medications: Active Medications Acetaminophen (Tylenol -) 650 mg PO Q6H PRN PRN Reason: PAIN OR FEVER Acetaminophen (Tylenol -) 650 mg PO Q6H PRN PRN Reason: PAIN Lactated Ringer's (Lactated Ringers Solution) 1,000 ml in 1,000 mls @ 100 mls/ hr IV ASDIR [facility] Last Admin: 06/12/18 15:39 Dose: 100 mls/hr Ceftriaxone Sodium 1 gm/ (Dextrose) 50 mls @ 100 mls/hr IVPB DAILY [facility]; Protocol Last Admin: 06/12/18 09:35 Dose: 100 mls/hr Ondansetron HCl (Zofran Odt -) 4 mg SL Q6H PRN PRN Reason: NAUSEA AND/OR VOMITING Pantoprazole Sodium (Protonix -) 40 mg PO DAILY [facility] Last Admin: 06/12/18 09:30 Dose: 40 mg - Objective Vital Signs: Vital Signs Temperature 97.5 F L 06/13/18 06:00 Pulse Rate 67 06/13/18 06:00 Respiratory Rate 20 06/13/18 06:00 Blood Pressure 130/77 06/13/18 06:00 O2 Sat by Pulse Oximetry (%) 95 06/12/18 21:00 Cardiovascular: Yes: Regular Rate and Rhythm Respiratory: Yes: Regular, CTA Bilaterally Gastrointestinal: Yes: Normal Bowel Sounds, Soft Labs: CBC, BMP 06/10/18 05:45 06/10/18 05:45 INR, PTT INR 1.50 (0.83-1.09) H 06/08/18 11:03 Problem List - Problems (1) Acute cystitis with hematuria Assessment/Plan: -Abx Per ID -May change to oral if dc Code(s): N30.01 - ACUTE CYSTITIS WITH HEMATURIA (2) BPH w urinary obs/LUTS Assessment/Plan: -Urology Follow up -scheduled for surgery today Code(s): N40.1 - BENIGN PROSTATIC HYPERPLASIA WITH LOWER URINARY TRACT SYMP; N13.8 - OTHER OBSTRUCTIVE AND REFLUX UROPATHY (3) Leukocytosis Code(s): D72.829 - ELEVATED WHITE BLOOD CELL COUNT, UNSPECIFIED
[2018-06-13] MEDS ORDERED: cefTRIAXone SODIUM 1 GM VIAL ONE (09:58)
[2018-06-13] MEDS ORDERED: DEXTROSE 5%-WATER - 50 ML IVPB ONE ×2 (09:58→17:55)
[2018-06-13] MEDS: CEFTRIAXONE 1 GM in DEXTROSE 5%-WATER - 50 ML IVPB SCH (10:15)
[2018-06-13] MEDS: PANTOPRAZOLE 40 MG TABLET (FP) PO SCH (10:54)
[2018-06-13] MEDS: LACTATED RINGERS SOLUTION 1,000 ML/1,000 ML INFUS.BAG IV SCH ×2 (10:54→16:00)
[2018-06-13 11:13] LABS: BASO % 0.7 % (0-2.0); EOS % 1.2 % (0-4.5); HEMATOCRIT 39.9 % (35.4-49); HEMOGLOBIN 13.2 GM/dL (11.7-16.9); LYMPH % 23.5 % (8-40); MCH 28.2 pg (25.7-33.7); MCHC 33.1 g/dl (32.0-35.9); MEAN CELL VOLUME 85.2 fl (80-96); MEAN PLT VOLUME 7.9 fl (7.5-11.1); MONO % 8.7 % (3.8-10.2); NEUT % 65.9 % (42.8-82.8); PLATELET COUNT 269 K/MM3 (134-434); RBC 4.68 M/mm3 (4.00-5.60); RDW 15.4 % (11.9-15.9); WHITE BLOOD COUNT 8.7 K/mm3 (4.0-10.0)
[2018-06-13 11:41] LABS: ANION GAP 6 MMOL/L (8-16); BLOOD UREA NITROGEN 11 mg/dL (7-18); CALCIUM 9.5 mg/dL (8.5-10.1); CHLORIDE 106 mmol/L (98-107); CO2 28 mmol/L (21-32); CREATININE 0.9 mg/dL (0.55-1.3); GLUCOSE,RANDOM 89 mg/dL (74-106); POTASSIUM 4.8 mmol/L (3.5-5.1); SODIUM 140 mmol/L (136-145)
[2018-06-13] MEDS ORDERED: ceFAZolin SODIUM 1 GM VIAL IVPB ONE (13:40)
--- NOTE | 2018-06-13 13:58 | PN ---
Progress Note, Physician History of Present Illness: patient doing well no new issues - Current Medication List Current Medications: Active Medications Acetaminophen (Tylenol -) 650 mg PO Q6H PRN PRN Reason: PAIN OR FEVER Acetaminophen (Tylenol -) 650 mg PO Q6H PRN PRN Reason: PAIN Lactated Ringer's (Lactated Ringers Solution) 1,000 ml in 1,000 mls @ 100 mls/ hr IV ASDIR [facility] Last Admin: 06/13/18 10:54 Dose: Not Given Ceftriaxone Sodium 1 gm/ (Dextrose) 50 mls @ 100 mls/hr IVPB DAILY [facility]; Protocol Last Admin: 06/13/18 10:15 Dose: 100 mls/hr Ondansetron HCl (Zofran Odt -) 4 mg SL Q6H PRN PRN Reason: NAUSEA AND/OR VOMITING Pantoprazole Sodium (Protonix -) 40 mg PO DAILY [facility] Last Admin: 06/13/18 10:54 Dose: Not Given - Objective Vital Signs: Vital Signs Temperature 97.7 F 06/13/18 09:00 Pulse Rate 66 06/13/18 09:00 Respiratory Rate 20 06/13/18 09:00 Blood Pressure 124/67 06/13/18 09:00 O2 Sat by Pulse Oximetry (%) 97 06/13/18 09:00 Constitutional: Yes: No Distress, Calm Cardiovascular: Yes: Regular Rate and Rhythm Respiratory: Yes: Regular, CTA Bilaterally Gastrointestinal: Yes: Normal Bowel Sounds, Soft Musculoskeletal: Yes: WNL Extremities: Yes: WNL Neurological: Yes: Alert, Oriented Psychiatric: Yes: Alert, Oriented Labs: CBC, BMP 06/13/18 10:55 06/13/18 10:55 INR, PTT INR 1.50 (0.83-1.09) H 06/08/18 11:03 Assessment/Plan Problem List - Problems (1) Acute cystitis with hematuria Code(s): N30.01 - ACUTE CYSTITIS WITH HEMATURIA (2) BPH w urinary obs/LUTS Code(s): N40.1 - BENIGN PROSTATIC HYPERPLASIA WITH LOWER URINARY TRACT SYMP; N13.8 - OTHER OBSTRUCTIVE AND REFLUX UROPATHY 3 fever 4 leukocytosis patient still c/o of burning in urine much better though plan can be discharged on po cipro 500 mg bid for 10 days rest as per the team
--- NOTE | 2018-06-13 14:27 | PN ---
Progress Note, Physician - Current Medication List Current Medications: Active Medications Acetaminophen (Tylenol -) 650 mg PO Q6H PRN PRN Reason: PAIN OR FEVER Acetaminophen (Tylenol -) 650 mg PO Q6H PRN PRN Reason: PAIN Lactated Ringer's (Lactated Ringers Solution) 1,000 ml in 1,000 mls @ 100 mls/ hr IV ASDIR [facility] Last Admin: 06/13/18 10:54 Dose: Not Given Ceftriaxone Sodium 1 gm/ (Dextrose) 50 mls @ 100 mls/hr IVPB DAILY [facility]; Protocol Last Admin: 06/13/18 10:15 Dose: 100 mls/hr Ondansetron HCl (Zofran Odt -) 4 mg SL Q6H PRN PRN Reason: NAUSEA AND/OR VOMITING Pantoprazole Sodium (Protonix -) 40 mg PO DAILY [facility] Last Admin: 06/13/18 10:54 Dose: Not Given - Objective Vital Signs: Vital Signs Temperature 97.7 F 06/13/18 09:00 Pulse Rate 66 06/13/18 09:00 Respiratory Rate 20 06/13/18 09:00 Blood Pressure 124/67 06/13/18 09:00 O2 Sat by Pulse Oximetry (%) 97 06/13/18 09:00 Gastrointestinal: Yes: Normal Bowel Sounds, Soft Musculoskeletal: Yes: WNL Extremities: Yes: WNL Neurological: Yes: Alert, Oriented Psychiatric: Yes: Alert, Oriented Labs: CBC, BMP 06/13/18 10:55 06/13/18 10:55 INR, PTT INR 1.50 (0.83-1.09) H 06/08/18 11:03
--- NOTE | 2018-06-13 15:18 | OP ---
Operative Note - Note: Operative Date: 06/13/18 Pre-Operative Diagnosis: BPH and Prostatitis Operation: TUVP Findings: Multiple prostatic calcification and abscesses Post-Operative Diagnosis: Same as Pre-op Surgeon: Geoffrey Chacon Anesthesia: Spinal Drains & Tubes with Location: [address] [facility] Operative Report Dictated: Yes
--- NOTE | 2018-06-13 15:28 | PN ---
Progress Note, Physician History of Present Illness: patient post op from turp d/w the surgeon had multiple prostatic abscess - Current Medication List Current Medications: Active Medications Acetaminophen (Tylenol -) 650 mg PO Q6H PRN PRN Reason: PAIN OR FEVER Acetaminophen (Tylenol -) 650 mg PO Q6H PRN PRN Reason: PAIN Lactated Ringer's (Lactated Ringers Solution) 1,000 ml in 1,000 mls @ 100 mls/ hr IV ASDIR [facility] Last Admin: 06/13/18 10:54 Dose: Not Given Ceftriaxone Sodium 1 gm/ (Dextrose) 50 mls @ 100 mls/hr IVPB DAILY [facility]; Protocol Last Admin: 06/13/18 10:15 Dose: 100 mls/hr Ondansetron HCl (Zofran Odt -) 4 mg SL Q6H PRN PRN Reason: NAUSEA AND/OR VOMITING Pantoprazole Sodium (Protonix -) 40 mg PO DAILY [facility] Last Admin: 06/13/18 10:54 Dose: Not Given - Objective Vital Signs: Vital Signs Temperature 97.7 F 06/13/18 09:00 Pulse Rate 66 06/13/18 09:00 Respiratory Rate 20 06/13/18 09:00 Blood Pressure 124/67 06/13/18 09:00 O2 Sat by Pulse Oximetry (%) 97 06/13/18 09:00 Constitutional: Yes: No Distress, Calm Cardiovascular: Yes: Regular Rate and Rhythm Respiratory: Yes: Regular, CTA Bilaterally Gastrointestinal: Yes: Normal Bowel Sounds, Soft Genitourinary: Yes: Corea Present Musculoskeletal: Yes: WNL Extremities: Yes: WNL Neurological: Yes: Alert, Oriented Psychiatric: Yes: Alert, Oriented Labs: CBC, BMP 06/13/18 10:55 06/13/18 10:55 INR, PTT INR 1.50 (0.83-1.09) H 06/08/18 11:03 Assessment/Plan Problem List - Problems (1) Acute cystitis with hematuria Code(s): N30.01 - ACUTE CYSTITIS WITH HEMATURIA (2) BPH w urinary obs/LUTS Code(s): N40.1 - BENIGN PROSTATIC HYPERPLASIA WITH LOWER URINARY TRACT SYMP; N13.8 - OTHER OBSTRUCTIVE AND REFLUX UROPATHY 3 fever 4 leukocytosis prostatic abscess plan in view of his symptoms and findings we will switch him to zosyn rest continue as per urology patient to be monitored for bleeding
[2018-06-13] MEDS ORDERED: ONDANSETRON *ODT* 4 MG TABLET SL PRN (15:58)
[2018-06-13] MEDS ORDERED: ACETAMINOPHEN 325 MG TABLET (FP) PO PRN (15:58)
[2018-06-13] MEDS ORDERED: PIPERACILLIN/TAZOBACTAM 3.375 GM VIAL IVPB ONE (17:55)
[2018-06-13] MEDS: PIPERACILLIN/TAZOB 3.375 GM 3.375 GM in DEXTROSE 5%-WATER - 50 ML IVPB SCH (17:56)
--- NOTE | 2018-06-13 20:37 | OP ---
DATE OF OPERATION: 06/13/2018 SURGEON: Geoffrey Chacon M.D. ANESTHESIA: Spinal. PREOPERATIVE DIAGNOSIS: Urinary tract infection, prostatitis, and benign prostatic hypertrophy. POSTOPERATIVE DIAGNOSIS: Urinary tract infection, prostatitis, and benign prostatic hypertrophy. Prostatic abscess. PROCEDURE: Transurethral vaporization of prostate. FINDINGS: A large prostate producing obstruction to the bladder outlet noted from a previous procedure a large bridge of tissue was connecting near the bladder neck from the right lobe or the left lobe, so that one can enter the bladder above the bridge or below the bridge. The right ureteral orifice was clearly visible, left ureteral orifice was not visible even before the procedure. The prostatic urethra is about 6 cm in length, verumontanum was found to be intact. DESCRIPTION OF PROCEDURE: Patient in lithotomy position under anesthesia was prepped and draped in the usual manner using plasma button laser scope, vaporization of the bridge tissue was carried out first. It was transected closer to the left lobe of the prostate, and the bridge was transected completely, then the remaining bridge tissue was vaporized towards the right lobe. Then prostatic urethra was inspected, and the additional tissue that was causing the obstruction were vaporized all the way to the verumontanum from bladder neck. At the end of the procedure a good channel was noted, multiple bridging points were electrocoagulated. A Corea catheter was left indwelling, continuous irrigation started. Patient tolerated the procedure well and left the operating room under satisfactory condition. GEOFFREY CHACON M.D. [facility]LE[facility]/[id number]
[2018-06-13] MEDS: ATORVASTATIN CA 40 MG TABLET (FP) PO SCH (21:51)
[2018-06-13] MEDS: ACETAMINOPHEN 325 MG TABLET (FP) PO PRN (21:51)
[2018-06-14] MEDS ORDERED: DEXTROSE 5%-WATER - 50 ML IVPB ONE ×3 (01:47→16:25)
[2018-06-14] MEDS ORDERED: PIPERACILLIN/TAZOBACTAM 3.375 GM VIAL IVPB ONE ×3 (01:47→16:25)
[2018-06-14] MEDS: PIPERACILLIN/TAZOB 3.375 GM 3.375 GM in DEXTROSE 5%-WATER - 50 ML IVPB SCH ×3 (02:34→17:06)
--- NOTE | 2018-06-14 07:55 | PN ---
Progress Note, Physician History of Present Illness: -Feels better - Current Medication List Current Medications: Active Medications Acetaminophen (Tylenol -) 650 mg PO Q6H PRN PRN Reason: FEVER Last Admin: 06/13/18 21:51 Dose: 650 mg Acetaminophen (Tylenol -) 650 mg PO Q6H PRN PRN Reason: PAIN 1-3 Atorvastatin Calcium (Lipitor -) 40 mg PO HS [facility] Last Admin: 06/13/18 21:51 Dose: 40 mg Piperacillin Sod/Tazobactam (Sod 3.375 gm/ Dextrose) 50 mls @ 100 mls/hr IVPB Q8H-IV [facility]; Protocol Last Admin: 06/14/18 02:34 Dose: 100 mls/hr Lactated Ringer's (Lactated Ringers Solution) 1,000 ml in 1,000 mls @ 100 mls/ hr IV ASDIR [facility] Last Admin: 06/13/18 16:00 Dose: 0 mls Ondansetron HCl (Zofran Odt -) 4 mg SL Q6H PRN PRN Reason: NAUSEA AND/OR VOMITING Pantoprazole Sodium (Protonix -) 40 mg PO DAILY [facility] - Objective Vital Signs: Vital Signs Temperature 99.0 F 06/14/18 06:00 Pulse Rate 88 06/14/18 06:00 Respiratory Rate 20 06/14/18 06:00 Blood Pressure 164/82 06/14/18 06:00 O2 Sat by Pulse Oximetry (%) 98 06/13/18 21:00 Respiratory: Yes: Regular, CTA Bilaterally Gastrointestinal: Yes: Normal Bowel Sounds, Soft Genitourinary: Yes: Corea Present Labs: CBC, BMP 06/13/18 10:55 06/13/18 10:55 INR, PTT INR 1.50 (0.83-1.09) H 06/08/18 11:03 Problem List - Problems (1) Acute cystitis with hematuria Assessment/Plan: -Abx Per ID -May change to oral if dc Code(s): N30.01 - ACUTE CYSTITIS WITH HEMATURIA (2) BPH w urinary obs/LUTS Assessment/Plan: -Urology Follow up -IV abx per id--zosyn -Operative Date: 06/13/18 Pre-Operative Diagnosis: BPH and Prostatitis Operation: TUVP Findings: Multiple prostatic calcification and abscesses Code(s): N40.1 - BENIGN PROSTATIC HYPERPLASIA WITH LOWER URINARY TRACT SYMP; N13.8 - OTHER OBSTRUCTIVE AND REFLUX UROPATHY (3) Leukocytosis Code(s): D72.829 - ELEVATED WHITE BLOOD CELL COUNT, UNSPECIFIED
[2018-06-14] MEDS: ACETAMINOPHEN 325 MG TABLET (FP) PO PRN ×2 (08:06→15:04)
[2018-06-14] MEDS: PANTOPRAZOLE 40 MG TABLET (FP) PO SCH (09:03)
--- NOTE | 2018-06-14 09:40 | PN ---
Progress Note (short form) - Note Progress Note: UROLOGY NOTE. PT. WENT INTO [facility] LAST NIGHT,ALVES PLACED AND 800 CC OF CLEAR URINE CLEARED,.SUGG. KEEP ALVES FOR 48HRS.
[2018-06-14] MEDS: LACTATED RINGERS SOLUTION 1,000 ML/1,000 ML INFUS.BAG IV SCH ×3 (12:42→23:41)
--- NOTE | 2018-06-14 15:28 | PN ---
Progress Note, Physician History of Present Illness: doing well no complaints foleys draining clear urine off of cbi - Current Medication List Current Medications: Active Medications Acetaminophen (Tylenol -) 650 mg PO Q6H PRN PRN Reason: FEVER Last Admin: 06/14/18 15:04 Dose: 650 mg Acetaminophen (Tylenol -) 650 mg PO Q6H PRN PRN Reason: PAIN 1-3 Atorvastatin Calcium (Lipitor -) 40 mg PO HS [facility] Last Admin: 06/13/18 21:51 Dose: 40 mg Piperacillin Sod/Tazobactam (Sod 3.375 gm/ Dextrose) 50 mls @ 100 mls/hr IVPB Q8H-IV [facility]; Protocol Last Admin: 06/14/18 09:03 Dose: 100 mls/hr Lactated Ringer's (Lactated Ringers Solution) 1,000 ml in 1,000 mls @ 100 mls/ hr IV ASDIR [facility] Last Admin: 06/14/18 12:42 Dose: 100 mls/hr Ondansetron HCl (Zofran Odt -) 4 mg SL Q6H PRN PRN Reason: NAUSEA AND/OR VOMITING Pantoprazole Sodium (Protonix -) 40 mg PO DAILY [facility] Last Admin: 06/14/18 09:03 Dose: 40 mg - Objective Vital Signs: Vital Signs Temperature 1 F L 06/14/18 14:23 Pulse Rate 81 06/14/18 14:23 Respiratory Rate 20 06/14/18 14:23 Blood Pressure 147/76 06/14/18 14:23 O2 Sat by Pulse Oximetry (%) 98 06/14/18 09:00 Constitutional: Yes: No Distress, Calm Cardiovascular: Yes: Regular Rate and Rhythm Respiratory: Yes: Regular, CTA Bilaterally Gastrointestinal: Yes: Normal Bowel Sounds, Soft Genitourinary: Yes: Corea Present Musculoskeletal: Yes: WNL Extremities: Yes: WNL Neurological: Yes: Alert, Oriented Psychiatric: Yes: Alert, Oriented Labs: CBC, BMP 06/13/18 10:55 06/13/18 10:55 INR, PTT INR 1.50 (0.83-1.09) H 06/08/18 11:03 Assessment/Plan Problem List - Problems (1) Acute cystitis with hematuria Code(s): N30.01 - ACUTE CYSTITIS WITH HEMATURIA (2) BPH w urinary obs/LUTS Code(s): N40.1 - BENIGN PROSTATIC HYPERPLASIA WITH LOWER URINARY TRACT SYMP; N13.8 - OTHER OBSTRUCTIVE AND REFLUX UROPATHY 3 fever 4 leukocytosis prostatic abscess plan continue abx monitor for hematuria stable rest as per the team
[2018-06-14] MEDS: ATORVASTATIN CA 40 MG TABLET (FP) PO SCH (21:04)
[2018-06-15] MEDS ORDERED: PIPERACILLIN/TAZOBACTAM 3.375 GM VIAL IVPB ONE ×3 (01:21→18:18)
[2018-06-15] MEDS ORDERED: DEXTROSE 5%-WATER - 50 ML IVPB ONE ×3 (01:22→18:19)
[2018-06-15] MEDS: PIPERACILLIN/TAZOB 3.375 GM 3.375 GM in DEXTROSE 5%-WATER - 50 ML IVPB SCH ×3 (01:32→18:24)
[2018-06-15] MEDS: ACETAMINOPHEN 325 MG TABLET (FP) PO PRN (05:41)
--- NOTE | 2018-06-15 08:52 | PN ---
Progress Note, Physician - Current Medication List Current Medications: Active Medications Acetaminophen (Tylenol -) 650 mg PO Q6H PRN PRN Reason: FEVER Last Admin: 06/15/18 05:41 Dose: 650 mg Acetaminophen (Tylenol -) 650 mg PO Q6H PRN PRN Reason: PAIN 1-3 Atorvastatin Calcium (Lipitor -) 40 mg PO HS [facility] Last Admin: 06/14/18 21:04 Dose: 40 mg Piperacillin Sod/Tazobactam (Sod 3.375 gm/ Dextrose) 50 mls @ 100 mls/hr IVPB Q8H-IV [facility]; Protocol Last Admin: 06/15/18 01:32 Dose: 100 mls/hr Lactated Ringer's (Lactated Ringers Solution) 1,000 ml in 1,000 mls @ 100 mls/ hr IV ASDIR [facility] Last Admin: 06/14/18 23:41 Dose: 100 mls/hr Ondansetron HCl (Zofran Odt -) 4 mg SL Q6H PRN PRN Reason: NAUSEA AND/OR VOMITING Pantoprazole Sodium (Protonix -) 40 mg PO DAILY [facility] Last Admin: 06/14/18 09:03 Dose: 40 mg - Objective Vital Signs: Vital Signs Temperature 98.2 F 06/15/18 07:14 Pulse Rate 82 06/15/18 07:14 Respiratory Rate 20 06/15/18 07:14 Blood Pressure 135/75 06/15/18 07:14 O2 Sat by Pulse Oximetry (%) 98 06/14/18 21:00 Cardiovascular: Yes: S1, S2 Respiratory: Yes: Regular, CTA Bilaterally Gastrointestinal: Yes: Normal Bowel Sounds, Soft Labs: CBC, BMP 06/13/18 10:55 06/13/18 10:55 INR, PTT INR 1.50 (0.83-1.09) H 06/08/18 11:03 Problem List - Problems (1) Acute cystitis with hematuria Assessment/Plan: -Abx Per ID -May change to oral if dc Code(s): N30.01 - ACUTE CYSTITIS WITH HEMATURIA (2) BPH w urinary obs/LUTS Assessment/Plan: -Urology Follow up -IV abx per id--zosyn -Operative Date: 06/13/18 Pre-Operative Diagnosis: BPH and Prostatitis Operation: TUVP Findings: Multiple prostatic calcification and abscesses Code(s): N40.1 - BENIGN PROSTATIC HYPERPLASIA WITH LOWER URINARY TRACT SYMP; N13.8 - OTHER OBSTRUCTIVE AND REFLUX UROPATHY (3) Leukocytosis Code(s): D72.829 - ELEVATED WHITE BLOOD CELL COUNT, UNSPECIFIED
[2018-06-15] MEDS: PANTOPRAZOLE 40 MG TABLET (FP) PO SCH (10:28)
[2018-06-15] MEDS: LACTATED RINGERS SOLUTION 1,000 ML/1,000 ML INFUS.BAG IV SCH ×2 (10:30→18:24)
[2018-06-15 12:59] VITALS: BMI 28.3
--- NOTE | 2018-06-15 13:20 | PN ---
Progress Note, Physician History of Present Illness: patient stable foleys removed no complaints - Current Medication List Current Medications: Active Medications Acetaminophen (Tylenol -) 650 mg PO Q6H PRN PRN Reason: FEVER Last Admin: 06/15/18 05:41 Dose: 650 mg Acetaminophen (Tylenol -) 650 mg PO Q6H PRN PRN Reason: PAIN 1-3 Atorvastatin Calcium (Lipitor -) 40 mg PO HS [facility] Last Admin: 06/14/18 21:04 Dose: 40 mg Piperacillin Sod/Tazobactam (Sod 3.375 gm/ Dextrose) 50 mls @ 100 mls/hr IVPB Q8H-IV [facility]; Protocol Last Admin: 06/15/18 10:28 Dose: 100 mls/hr Lactated Ringer's (Lactated Ringers Solution) 1,000 ml in 1,000 mls @ 100 mls/ hr IV ASDIR [facility] Last Admin: 06/15/18 10:30 Dose: 100 mls/hr Ondansetron HCl (Zofran Odt -) 4 mg SL Q6H PRN PRN Reason: NAUSEA AND/OR VOMITING Pantoprazole Sodium (Protonix -) 40 mg PO DAILY [facility] Last Admin: 06/15/18 10:28 Dose: 40 mg - Objective Vital Signs: Vital Signs Temperature 98 F 06/15/18 10:00 Pulse Rate 80 06/15/18 10:00 Respiratory Rate 20 06/15/18 10:00 Blood Pressure 129/76 06/15/18 10:00 O2 Sat by Pulse Oximetry (%) 98 06/15/18 09:00 Constitutional: Yes: No Distress, Calm Cardiovascular: Yes: Regular Rate and Rhythm Respiratory: Yes: Regular, CTA Bilaterally Gastrointestinal: Yes: Normal Bowel Sounds, Soft Musculoskeletal: Yes: WNL Extremities: Yes: WNL Neurological: Yes: Alert, Oriented Psychiatric: Yes: Alert, Oriented Labs: CBC, BMP 06/13/18 10:55 06/13/18 10:55 INR, PTT INR 1.50 (0.83-1.09) H 06/08/18 11:03 Assessment/Plan Problem List - Problems (1) Acute cystitis with hematuria Code(s): N30.01 - ACUTE CYSTITIS WITH HEMATURIA (2) BPH w urinary obs/LUTS Code(s): N40.1 - BENIGN PROSTATIC HYPERPLASIA WITH LOWER URINARY TRACT SYMP; N13.8 - OTHER OBSTRUCTIVE AND REFLUX UROPATHY 3 fever 4 leukocytosis prostatic abscess plan patient can be discharged on cipro 500 mg bid for 12 more days if he passes urine rest as per the team
[2018-06-15] MEDS: ATORVASTATIN CA 40 MG TABLET (FP) PO SCH (21:01)
[2018-06-16] MEDS ORDERED: DEXTROSE 5%-WATER - 50 ML IVPB ONE ×2 (01:09→08:43)
[2018-06-16] MEDS ORDERED: PIPERACILLIN/TAZOBACTAM 3.375 GM VIAL IVPB ONE ×2 (01:09→08:43)
[2018-06-16] MEDS: PIPERACILLIN/TAZOB 3.375 GM 3.375 GM in DEXTROSE 5%-WATER - 50 ML IVPB SCH ×2 (01:36→09:24)
[2018-06-16] MEDS: LACTATED RINGERS SOLUTION 1,000 ML/1,000 ML INFUS.BAG IV SCH (01:36)
--- NOTE | 2018-06-16 08:44 | DS ---
Physical Examination Vital Signs: Vital Signs Temperature 97.9 F 06/16/18 06:00 Pulse Rate 63 06/16/18 06:00 Respiratory Rate 20 06/16/18 06:00 Blood Pressure 143/75 06/16/18 06:00 O2 Sat by Pulse Oximetry (%) 98 06/15/18 21:00 Cardiovascular: Yes: S1, S2 Respiratory: Yes: Regular, CTA Bilaterally Gastrointestinal: Yes: Normal Bowel Sounds, Soft Labs: CBC, BMP 06/13/18 10:55 06/13/18 10:55 Discharge Summary Reason For Visit: HEMATURIA,SEPSIS Current Active Problems Acute cystitis with hematuria (Acute) BPH w urinary obs/LUTS (Acute) Leukocytosis (Acute) Sepsis (Acute) Hospital Course: - Problems (1) Acute cystitis with hematuria Assessment/Plan: -Abx Per ID -May change to oral if dc Code(s): N30.01 - ACUTE CYSTITIS WITH HEMATURIA (2) BPH w urinary obs/LUTS Assessment/Plan: -Urology Follow up -IV abx per id--zosyn--to po cipro -Operative Date: 06/13/18 Pre-Operative Diagnosis: BPH and Prostatitis Operation: TUVP Findings: Multiple prostatic calcification and abscesses Code(s): N40.1 - BENIGN PROSTATIC HYPERPLASIA WITH LOWER URINARY TRACT SYMP; N13.8 - OTHER OBSTRUCTIVE AND REFLUX UROPATHY (3) Leukocytosis Code(s): D72.829 - ELEVATED WHITE BLOOD CELL COUNT, UNSPECIFIED Condition: Improved - Instructions Referrals: Jez Logan [Primary Care Provider] - 1 Week Disposition: HOME - Home Medications Comprehensive Discharge Medication List: Ambulatory Orders Atorvastatin Ca [Lipitor] 40 mg PO HS 06/08/18 Acetaminophen [Tylenol .Regular Strength -] 650 mg PO Q6H PRN tablet 06/16/18 Ciprofloxacin [Cipro (Restricted To Id)] 500 mg PO Q12H #24 tablet 06/16/18 Pantoprazole Sodium [Protonix -] 40 mg PO DAILY #30 tablet.ec 06/16/18
[2018-06-16] MEDS: PANTOPRAZOLE 40 MG TABLET (FP) PO SCH (09:24)
[2018-06-16 20:57] VITALS: BP 135/83; PULSE 72; TEMP 98.1
== END 2018-06-16 10:28 | disposition home or self-care (01) | DRG 854 ==
LOC: JER 09:33 → JERBED 11:28 → J5S 18:11
PROVIDERS: ADMIT Family Medicine; ATTEND Family Medicine
PROC: 0V508ZZ Destruction of Prostate, Via Natural or Artificial Opening Endoscopic (ICD-10-PCS; principal; 2018-06-13 12:00)
DX: A41.9 Sepsis, unspecified organism (principal); N13.8 Other obstructive and reflux uropathy; N39.0 Urinary tract infection, site not specified; N41.2 Abscess of prostate; N30.01 Acute cystitis with hematuria; N40.1 Benign prostatic hyperplasia with lower urinary tract symptoms; D72.829 Elevated white blood cell count, unspecified; R50.9 Fever, unspecified; E78.5 Hyperlipidemia, unspecified; I10 Essential (primary) hypertension; N41.9 Inflammatory disease of prostate, unspecified
CPT/HCPCS: 36415; 71045-TC-FY; 76775-TC; 80048; 80053; 81003; 81015; 83605; 84153; 84484; 85025; 85027; 85610; 85651; 85730; 86850; 86900; 86901; 87040; 87086; 93005; 93010; 94760; 99285-25; J0131